=== PATIENT | female | born 1965 | race Caucasian/White ===

== ENCOUNTER 2019-03-22 12:19 | Observation (INO) ==
[2019-03-22] MEDS ORDERED: MetroNIDAZOLE 500 MG/100 ML 500 MG/100 ML BAG IVPB ONE (14:14)
[2019-03-22] MEDS ORDERED: 0.9 % Sodium Chloride 1,000 ML IVC SCH (14:15)
[2019-03-22] MEDS ORDERED: Acetaminophen IV 1,000 MG/100 ML INFUS..BTL IVPB ONE (14:15)
[2019-03-22] MEDS ORDERED: Ondansetron 4 MG/2 ML VIAL IVP PRN ×2 (18:55→21:15)
[2019-03-22] MEDS ORDERED: Albuterol 2.5 MG/3 ML NEBULIZER IH ONE (18:56)
[2019-03-22] MEDS ORDERED: Famotidine 20 MG/2 ML VIAL IVP ONE (18:56)
[2019-03-22] MEDS ORDERED: Ondansetron 4 MG/2 ML VIAL IVP ONE (18:57)
[2019-03-22] MEDS ORDERED: *HR* Promethazine 25 MG/ML VIAL IVP PRN (18:57)
[2019-03-22] MEDS ORDERED: *HR* HYDROmorphone (PF) 1 MG/ML SYRINGE IVP PRN (18:57)
[2019-03-22] MEDS ORDERED: Pantoprazole 40 MG VIAL IVP SCH (19:00)
[2019-03-22] MEDS ORDERED: *HR* FentaNYL (PF) 100 MCG/2 ML VIAL ONE (19:13)
[2019-03-22] MEDS ORDERED: Dexamethasone 4 MG/ML VIAL ONE (19:14)
[2019-03-22] MEDS ORDERED: Lidocaine -MPF 2% 2 ML VIAL ONE (19:14)
[2019-03-22] MEDS ORDERED: *HR* Propofol 200 MG/20 ML VIAL IVP ONE (19:14)
[2019-03-22] MEDS ORDERED: *HR* Rocuronium Bromide 50 MG/5 ML VIAL ONE (19:14)
[2019-03-22] MEDS ORDERED: Ketorolac 30 MG/ML VIAL ONE (19:17)
[2019-03-22] MEDS ORDERED: Lidocaine -MPF 4% 5 ML AMPUL ONE (19:18)
[2019-03-22] MEDS ORDERED: Albuterol 2.5 MG/3 ML NEBULIZER ONE (19:22)
[2019-03-22] MEDS ORDERED: *HR* Midazolam HCl 2 MG/2 ML VIAL ONE (19:38)
[2019-03-22] MEDS ORDERED: *HR* PHENYLEPHRINE 1,000 MCG/10 ML SYRINGE IVP ONE (19:48)
[2019-03-22] MEDS ORDERED: EPHEDrine 50 MG/ML VIAL ONE (20:09)
[2019-03-22] MEDS ORDERED: Neostigmine Methylsulfate 3 MG/3 ML SYRINGE ONE (20:12)
[2019-03-22] MEDS: Piperacillin/Tazobactam 3.375 GM in 0.9 % Sodium Chloride Mini Bag 100 ML IVPB SCH (21:37)
[2019-03-22] MEDS: 0.9 % Sodium Chloride 1,000 ML IVC SCH (21:37)
[2019-03-22 21:42] LABS: Basophils # 0.1 K/mcL (0.0-0.2); Basophils % 0.4 %; Eosinophils # 0.3 K/mcL (0.0-0.6); Eosinophils % 2.5 %; Hematocrit 33.1 % (35.3-44.9); Hemoglobin 10.7 g/dL (11.5-15.4); Immature Granulocytes % 0.4 % (0-4); Lymphocytes # 1.9 K/mcL (0.6-4.6); Lymphocytes % 15.7 %; Mean Corpuscular HGB Conc 32.3 g/dL (31.6-35.5); Mean Corpuscular Volume 92.7 fL (83.0-100.0); Mean Platelet Volume 9.3 fL (9.4-12.4); Monocytes # 0.4 K/mcL (0.0-1.3); Monocytes % 3.5 %; Neutrophils # 9.4 K/mcL (1.6-8.9); Platelet Count 266 K/mcL (140-400); Red Blood Count 3.57 M/mcL (3.82-4.97); Red Cell Distribution Width 13.7 % (11.5-14.5); Segmented Neutrophils % 77.5 %; White Blood Count 12.2 K/mcL (4.3-11.1)
[2019-03-22 21:49] LABS: Prothrombin Time 11.9 Seconds (9.4-12.1)
[2019-03-22 22:02] LABS: BUN/Creatinine Ratio 20 (6-26); Blood Urea Nitrogen 16 mg/dL (6-20); Calcium 8.5 mg/dL (8.6-10.3); Carbon Dioxide 26 mEq/L (23-29); Chloride 106 mEq/L (98-107); Glucose 111 mg/dL (70-105); Osmolality,Calculated 290 (280-300); Sodium 139 mEq/L (136-145); eGFR For African Americans > 60 (> 60); eGFR For Non-African Americans > 60 (> 60)
[2019-03-23 05:09] LABS: Basophils % 0.1 %; Hematocrit 32.5 % (35.3-44.9); Hemoglobin 10.5 g/dL (11.5-15.4); Immature Granulocytes % 0.4 % (0-4); Lymphocytes # 0.5 K/mcL (0.6-4.6); Mean Corpuscular HGB Conc 32.3 g/dL (31.6-35.5); Mean Corpuscular Hemoglobin 30.3 pg (28.0-33.3); Mean Corpuscular Volume 93.7 fL (83.0-100.0); Mean Platelet Volume 9.9 fL (9.4-12.4); Monocytes # 0.1 K/mcL (0.0-1.3); Monocytes % 0.8 %; Neutrophils # 10.8 K/mcL (1.6-8.9); Platelet Count 278 K/mcL (140-400); Red Blood Count 3.47 M/mcL (3.82-4.97); Red Cell Distribution Width 13.9 % (11.5-14.5); Segmented Neutrophils % 94.7 %; White Blood Count 11.4 K/mcL (4.3-11.1)
[2019-03-23 05:32] LABS: BUN/Creatinine Ratio 15 (6-26); Blood Urea Nitrogen 14 mg/dL (6-20); Calcium 8.5 mg/dL (8.6-10.3); Carbon Dioxide 21 mEq/L (23-29); Chloride 109 mEq/L (98-107); Glucose 243 mg/dL (70-105); Osmolality,Calculated 299 (280-300); Potassium 2.9 mEq/L (3.5-5.1); Sodium 140 mEq/L (136-145); eGFR For African Americans > 60 (> 60); eGFR For Non-African Americans > 60 (> 60)
[2019-03-23] MEDS: 0.9 % Sodium Chloride 1,000 ML IVC SCH (06:02)
[2019-03-23] MEDS: Piperacillin/Tazobactam 3.375 GM in 0.9 % Sodium Chloride Mini Bag 100 ML IVPB SCH (06:02)
[2019-03-23] MEDS ORDERED: Pantoprazole 40 MG VIAL IVP SCH (06:30)
[2019-03-23 08:03] VITALS: BP 98/65
[2019-03-23] MEDS ORDERED: Piperacillin/Tazobactam 3.375 GM in 0.9 % Sodium Chloride Mini Bag 100 ML IVPB SCH ×2 (18:57)
== END 2019-03-23 09:13 | disposition home or self-care (01) ==
LOC: 3BNU
PROVIDERS: ADMIT Surgery; ATTEND Surgery